=== PATIENT | female | born 1945 | race Caucasian/White ===

== ENCOUNTER 2016-08-08 17:54 | Emergency (ER) | payer OTHER, BC ==
[~2016-08-08] VITALS: Ht 152.4 cm; Wt 51.8 kg
[~2016-08-08 17:54] MED LIST: ATARAX,VISTARIL25 MG PO; ATIVAN0.5 MG PO; CEFTIN500 MG PO; CEPACOL SORE T1 EAC9 MM; CLARITIN,ALAVAR10 MG PO; CLARITIN10 M3 PO; COUMADIN,JANTOVE2 MG PO; COUMADIN1 MG PO; COUMADIN2 MG PO; DECADRON1 MG PO; DECADRON2 MG PO; DECADRON4 MG PO; DILAUDID2 MG PO; DULCOLAX10 MG PR; ESTRACE0.5 MG PO; EXTRA STRENGTH500 M1 PO; HYDROCODON-ACE1 EAC7 PO; HYDROMORPHO1 MG/1 ML IV; IBUPROFEN600 MG PO; LABETALOL HCL100 MG PO; LEVALBUTER1.25 MG/0. AEROSOL; LEVO-T50 MCG PO; LIPITOR20 MG PO; LOMOTIL TABLET1 EACH PO; LOPRESSOR25 MG PO; LORAZEPAM0.5 MG PO; LOVENOX60 MG/0.6 SC; LOVENOX80 MG/0.8 SC; METOPROLOL SUCC25 MG PO; METOPROLOL SUCC50 MG PO; METOPROLOL TART25 MG PO; MICRO-K10 ME2 PO; MILK OF MAGN PO; MOTRIN600 MG PO; MYCOSTATIN 100,60 ML PO; NEULASTA6 MG/0.6 M SC; ONDANSETRON HCL4 MG PO; PANTOPRAZOLE SO40 MG PO; POTASSIUM CHLO10 ME3 PO; POTASSIUM CHLO20 ME2 PO; PREDNISONE10 MG PO; PROMETRIUM200 M1 PO; PROTONIX40 MG PO; PROVENTIL,2.5 MG/3 M IH; RANITIDINE HCL150 MG PO; SYNTHROID75 MCG PO; TOPROL XL50 MG PO; TYLENOL EXTRA500 MG PO; ZANTAC150 MG PO; ZOFRAN4 MG PO; ZOFRAN4 MG/2 ML IV; ZYRTEC10 M2 PO
[2016-08-08 19:23] LABS: EOSINOPHIL (%) 0.5 % (0-5); HEMATOCRIT 33.6 % (36.0-46.0); IMMATURE GRANULOCYTE (%) 1.6 % (0.0-0.7); IMMATURE GRANULOCYTE COUNT 1.2 K/uL; LYMPHOCYTE COUNT 0.4 K/uL (1.0-2.8); MCH 33.6 PG (29.0-34.0); MCHC 35.4 G/DL (30.0-36.0); MCV 94.9 FL (83-99); MEAN PLAT.VOLUME 10.4 uM^3 (9.5-12.4); MONOCYTE (%) 6.8 % (3-12); MONOCYTE COUNT 0.5 K/uL (0-0.8); NEUTROPHIL (%) 85.7 % (45-76); NEUTROPHIL COUNT 6.4 K/uL (1.8-6.4); PLATELET COUNT 69 K/uL (156-360); RBC DIS.WIDTH-CV 14.6 % (11.8-14.6); RED BLOOD COUNT 3.54 M/uL (3.80-5.20); WHITE BLOOD COUNT 7.5 K/uL (4.1-10.2)
[2016-08-08 19:40] LABS: CHLORIDE 101 mEq/L (99-109); POTASSIUM 4.6 mEq/L (3.7-5.4); SODIUM 133 mEq/L (136-147)
[2016-08-08 19:43] LABS: GLUCOSE 115 mg/dL (70-99)
[2016-08-08 19:44] LABS: ANION GAP 11 MEQ/L (2-14)
[2016-08-08 19:45] LABS: TOTAL BILIRUBIN 0.5 mg/dL (0.0-1.0)
[2016-08-08 19:46] LABS: ALKALINE PHOSPHATASE 61 IU/L (3-129); GFR ESTIMATE (CALCULATED) > 59 mL/min/
[2016-08-08 19:47] LABS: UREA NITROGEN (BUN) 32 mg/dL (9-23)
[2016-08-08 19:52] LABS: PROTHROMBIN TIME 10.1 (9.2-11.2); PTT 21.2 (25-32)
[2016-08-08] MEDS ORDERED: POTASSIUM CHLO10 ME4 PO (20:14)
[2016-08-08] MEDS ORDERED: MAGNESIUM400 M1 PO (20:16)
[2016-08-08] MEDS ORDERED: DECADRON4 MG PO (20:18)
[2016-08-08] MEDS ORDERED: LOVENOX60 MG/0.6 SC (20:19)
[2016-08-08] MEDS ORDERED: SYNTHROID75 MCG PO (20:20)
[2016-08-08] MEDS ORDERED: TOPROL XL100 MG PO (20:20)
[2016-08-08] MEDS ORDERED: ZYRTEC10 M3 PO (20:22)
[2016-08-08] MEDS ORDERED: FLUCONAZOLE100 MG PO (20:23)
[2016-08-08] MEDS ORDERED: ACIDOPHILUS1 EAC4 PO (20:23)
[2016-08-08 21:50] VITALS: BP 148/91
== END 2016-08-08 21:55 | disposition home or self-care (01) ==
LOC: EME 17:54
PROVIDERS: Physician Assistant
DX: K92.1 Melena (principal); C79.31 Secondary malignant neoplasm of brain; Z85.3 Personal history of malignant neoplasm of breast; Z92.21 Personal history of antineoplastic chemotherapy; Z86.718 Personal history of other venous thrombosis and embolism; E11.9 Type 2 diabetes mellitus without complications; I10 Essential (primary) hypertension; K21.9 Gastro-esophageal reflux disease without esophagitis; E03.9 Hypothyroidism, unspecified; Z87.01 Personal history of pneumonia (recurrent); Z87.891 Personal history of nicotine dependence
CPT/HCPCS: 80053; 85025; 85610; 85730; 86850; 86900; 86901; 99281; 99285; J7030

== ENCOUNTER 2016-09-19 16:15 | Inpatient (IN) | payer OTHER, BC ==
[~2016-09-19] VITALS: Ht 152.4 cm; Wt 62.0 kg
[~2016-09-19 16:15] MED LIST changes: +ACIDOPHILUS1 EAC4 PO; +FLUCONAZOLE100 MG PO; +MAGNESIUM400 M1 PO; +POTASSIUM CHLO10 ME4 PO; +TOPROL XL100 MG PO; +ZYRTEC10 M3 PO
[2016-09-19 18:18] LABS: HEMATOCRIT 32.1 % (36.0-46.0); MCH 33.2 PG (29.0-34.0); MCHC 31.5 G/DL (30.0-36.0); MCV 105.6 FL (83-99); MEAN PLAT.VOLUME 9.5 uM^3 (9.5-12.4); PLATELET COUNT 221 K/uL (156-360); RBC DIS.WIDTH-CV 17.1 % (11.8-14.6); RBC DIS.WIDTH-SD 63.4 % (39-53); RED BLOOD COUNT 3.04 M/uL (3.80-5.20)
[2016-09-19 18:21] LABS: WHITE BLOOD COUNT 12.3 K/uL (4.1-10.2)
[2016-09-19 18:26] LABS: CHLORIDE 103 mEq/L (99-109)
[2016-09-19 18:27] LABS: SODIUM 138 mEq/L (136-147)
[2016-09-19 18:28] LABS: GLUCOSE 104 mg/dL (70-99)
[2016-09-19 18:30] LABS: ANION GAP 12 MEQ/L (2-14)
[2016-09-19 18:32] LABS: GFR ESTIMATE (CALCULATED) > 59 mL/min/
[2016-09-19 18:33] LABS: UREA NITROGEN (BUN) 16 mg/dL (9-23)
[2016-09-19 18:38] LABS: TROP-I INTERPRETATION NEGATIVE; TROPONIN-I < 0.01 ng/mL (0.0-0.30)
[2016-09-19 19:06] LABS: ADD MIUA? YES; BILIRUBIN NEGATIVE; BLOOD NEGATIVE; COLOR DK YELLOW ((YELLOW)); GLUCOSE (STRIP) NEGATIVE; KETONES TRACE; LEUKOCYTES MODERATE; NITRITE NEGATIVE; PROTEIN (STRIP) TRACE; SPECIFIC GRAVITY 1.023 (1.000-1.030); UROBILINOGEN 0.2 MG/DL (0.2-1.0)
[2016-09-19 19:24] LABS: CRYSTALS PRESENT; UCUL ADDED? YES
[2016-09-19 19:25] LABS: AMORPHOUS URATES CRYSTALS 3+
[2016-09-19] MEDS ORDERED: TOPROL XL25 MG PO (19:57)
[2016-09-20] VITALS (7 sets, daily range): BP systolic 97–149; BP diastolic 49–67
[2016-09-20 07:44] LABS: MCH 33.6 PG (29.0-34.0); MCHC 31.9 G/DL (30.0-36.0); MCV 105.5 FL (83-99); MEAN PLAT.VOLUME 9.9 uM^3 (9.5-12.4); PLATELET COUNT 179 K/uL (156-360); RBC DIS.WIDTH-CV 17.2 % (11.8-14.6); RBC DIS.WIDTH-SD 66.8 % (39-53); RED BLOOD COUNT 2.56 M/uL (3.80-5.20); WHITE BLOOD COUNT 9.3 K/uL (4.1-10.2)
[2016-09-20 07:50] LABS: EOSINOPHIL (%) 0.1 % (0-5); IMMATURE GRANULOCYTE (%) 0.3 % (0.0-0.7); LYMPHOCYTE COUNT 0.9 K/uL (1.0-2.8); MONOCYTE (%) 14.9 % (3-12); MONOCYTE COUNT 1.4 K/uL (0-0.8); NEUTROPHIL (%) 75.2 % (45-76)
[2016-09-20 08:04] LABS: ANION GAP 7 MEQ/L (2-14); CHLORIDE 108 MEQ/L (99-109); GFR ESTIMATE (CALCULATED) > 59 mL/min/; GLUCOSE 94 mg/dL (70-99); POTASSIUM 3.3 MEQ/L (3.7-5.4); SAMPLE HEMOLYSIS CHECK 0; SAMPLE ICTERIC CHECK 0; SAMPLE LIPEMIA CHECK 0; SODIUM 139 MEQ/L (136-147); UREA NITROGEN (BUN) 12 mg/dL (9-23)
[2016-09-21] VITALS (7 sets, daily range): BP systolic 84–130; BP diastolic 40–856
[2016-09-21 07:34] LABS: HEMATOCRIT 26.8 % (36.0-46.0); MCH 32.3 PG (29.0-34.0); MCV 104.3 FL (83-99); MEAN PLAT.VOLUME 9.9 uM^3 (9.5-12.4); PLATELET COUNT 185 K/uL (156-360); RBC DIS.WIDTH-CV 16.8 % (11.8-14.6); RBC DIS.WIDTH-SD 63.8 % (39-53); RED BLOOD COUNT 2.57 M/uL (3.80-5.20); WHITE BLOOD COUNT 8.2 K/uL (4.1-10.2)
[2016-09-21 07:55] LABS: EOSINOPHIL (%) 0.5 % (0-5); IMMATURE GRANULOCYTE (%) 0.4 % (0.0-0.7); MONOCYTE (%) 12.8 % (3-12); MONOCYTE COUNT 1.1 K/uL (0-0.8); NEUTROPHIL (%) 74.3 % (45-76); NEUTROPHIL COUNT 6.1 K/uL (1.8-6.4)
[2016-09-21 08:10] LABS: ALKALINE PHOSPHATASE 79 IU/L (3-129); ANION GAP 9 MEQ/L (2-14); CHLORIDE 105 MEQ/L (99-109); GFR ESTIMATE (CALCULATED) > 59 mL/min/; GLUCOSE 86 mg/dL (70-99); POTASSIUM 3.7 MEQ/L (3.7-5.4); SAMPLE HEMOLYSIS CHECK 0; SAMPLE ICTERIC CHECK 0; SAMPLE LIPEMIA CHECK 0; SODIUM 139 MEQ/L (136-147); TOTAL BILIRUBIN 0.8 MG/DL (0.0-1.0); UREA NITROGEN (BUN) 10 mg/dL (9-23)
[2016-09-22 01:13] VITALS: BP 106/47
[2016-09-22 05:22] VITALS: BP 110/56
[2016-09-22 07:50] LABS: HEMATOCRIT 25.5 % (36.0-46.0); MCH 32.8 PG (29.0-34.0); MCHC 31.8 G/DL (30.0-36.0); MCV 103.2 FL (83-99); PLATELET COUNT 178 K/uL (156-360); RBC DIS.WIDTH-CV 16.4 % (11.8-14.6); RBC DIS.WIDTH-SD 62.5 % (39-53); RED BLOOD COUNT 2.47 M/uL (3.80-5.20); WHITE BLOOD COUNT 5.9 K/uL (4.1-10.2)
[2016-09-22 07:54] VITALS: BP 84/64
[2016-09-22 08:05] LABS: EOSINOPHIL (%) 1.3 % (0-5); EOSINOPHIL COUNT 0.1 K/uL (0-0.3); LYMPHOCYTE COUNT 0.8 K/uL (1.0-2.8); MONOCYTE (%) 13.5 % (3-12); MONOCYTE COUNT 0.8 K/uL (0-0.8); NEUTROPHIL (%) 72.4 % (45-76); NEUTROPHIL COUNT 4.3 K/uL (1.8-6.4)
[2016-09-22 08:19] LABS: ANION GAP 7 MEQ/L (2-14); CHLORIDE 106 MEQ/L (99-109); GFR ESTIMATE (CALCULATED) > 59 mL/min/; GLUCOSE 91 mg/dL (70-99); POTASSIUM 3.9 MEQ/L (3.7-5.4); SAMPLE HEMOLYSIS CHECK 0; SAMPLE ICTERIC CHECK 0; SAMPLE LIPEMIA CHECK 0; SODIUM 138 MEQ/L (136-147); UREA NITROGEN (BUN) 8 mg/dL (9-23)
[2016-09-22 10:20] VITALS: BP 107/51
[2016-09-22 10:52] VITALS: BP 118/49
[2016-09-22] MEDS ORDERED: LEVAQUIN500 MG PO (11:21)
== END 2016-09-22 16:28 | disposition home or self-care (01) | DRG 872 ==
LOC: EME 16:15 → 2EAST 21:43 → EDOF 21:43 → 2EAST 09-20 00:36
PROVIDERS: Emergency Medicine; Family Medicine; Internal Medicine
DX: A41.9 Sepsis, unspecified organism (principal); J98.11 Atelectasis; E87.6 Hypokalemia; R91.8 Other nonspecific abnormal finding of lung field; I49.1 Atrial premature depolarization; R00.0 Tachycardia, unspecified; D63.8 Anemia in other chronic diseases classified elsewhere; D53.9 Nutritional anemia, unspecified; I10 Essential (primary) hypertension; Z85.3 Personal history of malignant neoplasm of breast; Z85.841 Personal history of malignant neoplasm of brain; E78.5 Hyperlipidemia, unspecified; Z86.718 Personal history of other venous thrombosis and embolism; Z86.711 Personal history of pulmonary embolism; Z96.659 Presence of unspecified artificial knee joint; Z87.891 Personal history of nicotine dependence
CPT/HCPCS: 71020; 71250; 80048; 80053; 80202; 81003; 82607; 82746; 83605; 84484; 85025; 85027; 87040; 87086; 93005; 93306; 99281; 99285; J0692; J2405; J3370; J3420; J7030; J7050

== ENCOUNTER 2016-11-07 18:25 | Emergency (ER) | payer OTHER, BC ==
[~2016-11-07] VITALS: Ht 153.7 cm; Wt 61.0 kg
[~2016-11-07 18:25] MED LIST changes: +LEVAQUIN500 MG PO; +TOPROL XL25 MG PO
[2016-11-07 20:04] LABS: ADD MIUA? YES; BILIRUBIN NEGATIVE; BLOOD SMALL; COLOR STRAW ((YELLOW)); GLUCOSE (STRIP) NEGATIVE; KETONES NEGATIVE; LEUKOCYTES NEGATIVE; NITRITE NEGATIVE; PROTEIN (STRIP) NEGATIVE; SPECIFIC GRAVITY 1.005 (1.000-1.030); UROBILINOGEN 0.2 MG/DL (0.2-1.0)
[2016-11-07 20:14] LABS: EOSINOPHIL (%) 0.2 % (0-5); HEMATOCRIT 38.3 % (36.0-46.0); IMMATURE GRANULOCYTE (%) 0.8 % (0.0-0.7); INSTRUMENT ABS NEUTROPHIL CT 3.6 K/uL; LYMPHOCYTE COUNT 0.9 K/uL (1.0-2.8); MCHC 32.1 G/DL (30.0-36.0); MEAN PLAT.VOLUME 9.7 uM^3 (9.5-12.4); MONOCYTE (%) 9.2 % (3-12); MONOCYTE COUNT 0.5 K/uL (0-0.8); NEUTROPHIL (%) 72.1 % (45-76); NEUTROPHIL COUNT 3.6 K/uL (1.8-6.4); PLATELET COUNT 134 K/uL (156-360); RBC DIS.WIDTH-CV 16.9 % (11.8-14.6); RBC DIS.WIDTH-SD 64.6 % (39-53); RED BLOOD COUNT 3.73 M/uL (3.80-5.20)
[2016-11-07 20:15] LABS: MCV 102.7 FL (83-99)
[2016-11-07 20:20] LABS: BACTERIA RARE /HPF; EPITHELIAL CELLS NONE SEEN /HPF; MUCUS NONE SEEN /LPF; RED BLOOD CELLS 0-5 /HPF (0-5); UCUL ADDED? NO; WHITE BLOOD CELLS 0-5 /HPF (0-5)
[2016-11-07 20:27] LABS: CHLORIDE 103 mEq/L (99-109); POTASSIUM 3.9 mEq/L (3.7-5.4); SODIUM 137 mEq/L (136-147)
[2016-11-07 20:28] LABS: GLUCOSE 98 mg/dL (70-99)
[2016-11-07 20:30] LABS: ANION GAP 10 MEQ/L (2-14)
[2016-11-07 20:32] LABS: GFR ESTIMATE (CALCULATED) > 59 mL/min/
[2016-11-07 20:33] LABS: UREA NITROGEN (BUN) 20 mg/dL (9-23)
[2016-11-07 20:52] LABS: INFLUENZA A VIRAL ANTIGEN NEGATIVE; INFLUENZA B VIRAL ANTIGEN NEGATIVE
[2016-11-07 22:25] VITALS: BP 143/77
== END 2016-11-07 22:26 | disposition home or self-care (01) ==
LOC: EME → EDBD 18:25 → EME 22:26
PROVIDERS: Emergency Medicine
DX: R53.1 Weakness (principal); C79.31 Secondary malignant neoplasm of brain; Z85.3 Personal history of malignant neoplasm of breast; E11.9 Type 2 diabetes mellitus without complications; I10 Essential (primary) hypertension; K21.9 Gastro-esophageal reflux disease without esophagitis; Z86.718 Personal history of other venous thrombosis and embolism; E03.9 Hypothyroidism, unspecified; Z87.891 Personal history of nicotine dependence
CPT/HCPCS: 80048; 81003; 85025; 87502; 99281; 99284; J7030

== ENCOUNTER 2016-12-02 22:22 | Inpatient (IN) | payer OTHER, BC ==
[~2016-12-02] VITALS: Ht 152.4 cm; Wt 54.4 kg
[2016-12-02 23:56] LABS: ADD MIUA? NO; BILIRUBIN NEGATIVE; BLOOD NEGATIVE; COLOR YELLOW ((YELLOW)); GLUCOSE (STRIP) NEGATIVE; KETONES NEGATIVE; LEUKOCYTES NEGATIVE; NITRITE NEGATIVE; PROTEIN (STRIP) NEGATIVE; SPECIFIC GRAVITY 1.031 (1.000-1.030); UCUL ADDED? NO; UROBILINOGEN 0.2 MG/DL (0.2-1.0)
[2016-12-03 00:20] LABS: EOSINOPHIL (%) 0 % (0-5); HEMATOCRIT 45.3 % (36.0-46.0); IMMATURE GRANULOCYTE (%) 1.4 % (0.0-0.7); IMMATURE GRANULOCYTE COUNT 0.2 K/uL; INSTRUMENT ABS NEUTROPHIL CT 8.8 K/uL; MCH 32.8 PG (29.0-34.0); MCV 96.6 FL (83-99); MEAN PLAT.VOLUME 9.1 uM^3 (9.5-12.4); MONOCYTE COUNT 1.2 K/uL (0-0.8); NEUTROPHIL (%) 78.1 % (45-76); NEUTROPHIL COUNT 8.8 K/uL (1.8-6.4); PLATELET COUNT 324 K/uL (156-360); RBC DIS.WIDTH-CV 14.5 % (11.8-14.6); RBC DIS.WIDTH-SD 51.5 % (39-53); RED BLOOD COUNT 4.69 M/uL (3.80-5.20); WHITE BLOOD COUNT 11.2 K/uL (4.1-10.2)
[2016-12-03 00:26] LABS: CHLORIDE 101 mEq/L (99-109); POTASSIUM 4.4 mEq/L (3.7-5.4); SODIUM 134 mEq/L (136-147)
[2016-12-03 00:28] LABS: GLUCOSE 86 mg/dL (70-99)
[2016-12-03 00:29] LABS: ANION GAP 12 MEQ/L (2-14)
[2016-12-03 00:30] LABS: TOTAL BILIRUBIN 0.4 mg/dL (0.0-1.0)
[2016-12-03 00:32] LABS: ALKALINE PHOSPHATASE 70 IU/L (3-129); GFR ESTIMATE (CALCULATED) > 59 mL/min/
[2016-12-03 00:33] LABS: DIRECT BILIRUBIN 0.1 mg/dL (0.0-0.3); UREA NITROGEN (BUN) 30 mg/dL (9-23)
[2016-12-03 00:35] LABS: CREATINE KINASE 12 IU/L (1-294); LIPASE 63 U/L (1.0-51.0); TOTAL CK 12 IU/L (1-294)
[2016-12-03 00:36] LABS: TROP-I INTERPRETATION NEGATIVE; TROPONIN-I < 0.01 ng/mL (0.0-0.30)
[2016-12-03 00:37] LABS: INTER. NORMALIZED RATIO 1.3; PROTHROMBIN TIME 13.2 (9.2-11.2); PTT 29.8 (25-32)
[2016-12-03 00:41] LABS: CK-MB 0.5 ng/mL (0.0-4.9)
[2016-12-03] MEDS ORDERED: DECADRON4 MG PO (02:34)
[2016-12-03] MEDS ORDERED: PROBIOTIC1 EAC1 PO (02:35)
[2016-12-03 04:46] VITALS: BP 135/60
[2016-12-03 06:06] LABS: EOSINOPHIL (%) 0.2 % (0-5); HEMATOCRIT 41.4 % (36.0-46.0); IMMATURE GRANULOCYTE (%) 1.7 % (0.0-0.7); IMMATURE GRANULOCYTE COUNT 0.2 K/uL; INSTRUMENT ABS NEUTROPHIL CT 7.2 K/uL; MCH 32.5 PG (29.0-34.0); MCHC 33.3 G/DL (30.0-36.0); MCV 97.4 FL (83-99); MEAN PLAT.VOLUME 8.8 uM^3 (9.5-12.4); MONOCYTE (%) 11.6 % (3-12); MONOCYTE COUNT 1.1 K/uL (0-0.8); NEUTROPHIL (%) 75.9 % (45-76); NEUTROPHIL COUNT 7.2 K/uL (1.8-6.4); PLATELET COUNT 238 K/uL (156-360); RBC DIS.WIDTH-CV 14.4 % (11.8-14.6); RBC DIS.WIDTH-SD 52.1 % (39-53); RED BLOOD COUNT 4.25 M/uL (3.80-5.20); WHITE BLOOD COUNT 9.5 K/uL (4.1-10.2)
[2016-12-03 06:31] LABS: ANION GAP 5 MEQ/L (2-14); CHLORIDE 100 MEQ/L (99-109); GFR ESTIMATE (CALCULATED) > 59 mL/min/; GLUCOSE 83 mg/dL (70-99); SAMPLE HEMOLYSIS CHECK 1; SAMPLE ICTERIC CHECK 0; SAMPLE LIPEMIA CHECK 0; SODIUM 132 MEQ/L (136-147); UREA NITROGEN (BUN) 20 mg/dL (9-23)
[2016-12-03 08:26] VITALS: BP 163/72
[2016-12-03 09:10] LABS: INTERNAL CONTROL VALID? YES
[2016-12-03] MEDS ORDERED: XARELTO20 MG PO (14:20)
[2016-12-03] MEDS ORDERED: VISINE TEARS DR30 ML BOTH EYES (14:20)
[2016-12-03 17:06] VITALS: BP 160/71
[2016-12-03 23:01] VITALS: BP 142/75
[2016-12-04 06:32] LABS: HEMATOCRIT 42.5 % (36.0-46.0); MCH 32.7 PG (29.0-34.0); MCHC 34.4 G/DL (30.0-36.0); MCV 95.3 FL (83-99); MEAN PLAT.VOLUME 8.6 uM^3 (9.5-12.4); PLATELET COUNT 243 K/uL (156-360); RBC DIS.WIDTH-CV 14.5 % (11.8-14.6); RBC DIS.WIDTH-SD 51.3 % (39-53); RED BLOOD COUNT 4.46 M/uL (3.80-5.20); WHITE BLOOD COUNT 11.4 K/uL (4.1-10.2)
[2016-12-04 06:54] VITALS: BP 132/64
[2016-12-04 06:55] LABS: ANION GAP 9 MEQ/L (2-14); CHLORIDE 101 MEQ/L (99-109); GFR ESTIMATE (CALCULATED) > 59 mL/min/; GLUCOSE 78 mg/dL (70-99); POTASSIUM 4.2 MEQ/L (3.7-5.4); SAMPLE HEMOLYSIS CHECK 0; SAMPLE ICTERIC CHECK 0; SAMPLE LIPEMIA CHECK 0; SODIUM 135 MEQ/L (136-147); UREA NITROGEN (BUN) 19 mg/dL (9-23)
[2016-12-04 15:00] VITALS: BP 130/60
[2016-12-04 23:22] VITALS: BP 121/63
[2016-12-05 07:05] VITALS: BP 130/65
[2016-12-05 15:10] VITALS: BP 127/66
[2016-12-05 23:23] VITALS: BP 136/67
[2016-12-06 08:26] VITALS: BP 133/72
[2016-12-06 08:55] LABS: HEMATOCRIT 43.4 % (36.0-46.0); MCH 31.8 PG (29.0-34.0); MCHC 33.6 G/DL (30.0-36.0); MCV 94.6 FL (83-99); MEAN PLAT.VOLUME 8.7 uM^3 (9.5-12.4); PLATELET COUNT 234 K/uL (156-360); RBC DIS.WIDTH-CV 14.5 % (11.8-14.6); RBC DIS.WIDTH-SD 50.3 % (39-53); RED BLOOD COUNT 4.59 M/uL (3.80-5.20); WHITE BLOOD COUNT 12.2 K/uL (4.1-10.2)
[2016-12-06 09:21] LABS: ANION GAP 11 MEQ/L (2-14); CHLORIDE 98 MEQ/L (99-109); GFR ESTIMATE (CALCULATED) > 59 mL/min/; GLUCOSE 130 mg/dL (70-99); POTASSIUM 4.4 MEQ/L (3.7-5.4); SAMPLE HEMOLYSIS CHECK 0; SAMPLE ICTERIC CHECK 0; SAMPLE LIPEMIA CHECK 0; SODIUM 134 MEQ/L (136-147); UREA NITROGEN (BUN) 24 mg/dL (9-23)
[2016-12-06 17:02] VITALS: BP 141/75
[2016-12-07 00:11] VITALS: BP 141/63
[2016-12-07 06:45] VITALS: BP 142/69
[2016-12-07 06:58] LABS: HEMATOCRIT 44.1 % (36.0-46.0); MCH 33.4 PG (29.0-34.0); MCHC 35.1 G/DL (30.0-36.0); MEAN PLAT.VOLUME 9.1 uM^3 (9.5-12.4); MONOCYTE (%) 5.3 % (3-12); NEUTROPHIL (%) 87.9 % (45-76); PLATELET COUNT 244 K/uL (156-360); RBC DIS.WIDTH-CV 14.5 % (11.8-14.6); RBC DIS.WIDTH-SD 50.4 % (39-53); RED BLOOD COUNT 4.64 M/uL (3.80-5.20); WHITE BLOOD COUNT 14.4 K/uL (4.1-10.2)
[2016-12-07 06:59] LABS: EOSINOPHIL (%) 0 % (0-5); IMMATURE GRANULOCYTE (%) 1.1 % (0.0-0.7); IMMATURE GRANULOCYTE COUNT 0.2 K/uL; INSTRUMENT ABS NEUTROPHIL CT 12.7 K/uL; LYMPHOCYTE COUNT 0.8 K/uL (1.0-2.8); MONOCYTE COUNT 0.8 K/uL (0-0.8); NEUTROPHIL COUNT 12.7 K/uL (1.8-6.4)
[2016-12-07 07:26] LABS: ANION GAP 11 MEQ/L (2-14); CHLORIDE 98 MEQ/L (99-109); GFR ESTIMATE (CALCULATED) > 59 mL/min/; GLUCOSE 125 mg/dL (70-99); POTASSIUM 4.6 MEQ/L (3.7-5.4); SAMPLE HEMOLYSIS CHECK 0; SAMPLE ICTERIC CHECK 0; SAMPLE LIPEMIA CHECK 0; SODIUM 134 MEQ/L (136-147); UREA NITROGEN (BUN) 23 mg/dL (9-23)
[2016-12-07 15:10] VITALS: BP 133/71
[2016-12-07 22:45] VITALS: BP 134/71
[2016-12-08 06:53] VITALS: BP 147/67
[2016-12-08 15:00] VITALS: BP 136/84
[2016-12-08] MEDS ORDERED: DEXAMETHASONE4 MG PO (15:09)
[2016-12-08 23:56] VITALS: BP 130/65
[2016-12-09 07:01] VITALS: BP 141/86
[2016-12-09 15:26] VITALS: BP 140/77
[2016-12-09 23:08] VITALS: BP 116/71
[2016-12-10 07:24] VITALS: BP 129/78
[2016-12-10] MEDS ORDERED: HYOSCYAMINE0.125 M2 PO (11:21)
[2016-12-10] MEDS ORDERED: DILAUDID 11 MG/1 M1 PO (11:21)
[2016-12-10] MEDS ORDERED: ATIVAN0.5 MG PO (11:21)
[2016-12-10] MEDS ORDERED: DILAUDID PO (12:15)
[2016-12-10] MEDS ORDERED: MYCOSTATIN 100,60 ML PO (12:56)
[2016-12-10] MEDS ORDERED: DILAUDID2 MG PO (12:56)
== END 2016-12-10 14:24 | disposition hospice, home (50) | DRG 54 ==
LOC: EME → EDBD 22:22 → 5EAST 12-03 03:25 → EDOF 12-03 03:25 → 5EAST 12-03 04:30
PROVIDERS: Emergency Medicine; Hospitalist; Internal Medicine; Nurse Practitioner Family
DX: C79.31 Secondary malignant neoplasm of brain (principal); J18.9 Pneumonia, unspecified organism; E86.0 Dehydration; I10 Essential (primary) hypertension; Z85.3 Personal history of malignant neoplasm of breast; Z86.711 Personal history of pulmonary embolism; Z79.01 Long term (current) use of anticoagulants; Z86.718 Personal history of other venous thrombosis and embolism; E78.5 Hyperlipidemia, unspecified; E87.1 Hypo-osmolality and hyponatremia; N17.9 Acute kidney failure, unspecified; Z87.891 Personal history of nicotine dependence; B37.0 Candidal stomatitis; Z96.652 Presence of left artificial knee joint; Z90.5 Acquired absence of kidney; D68.51 Activated protein C resistance; E03.9 Hypothyroidism, unspecified; K21.9 Gastro-esophageal reflux disease without esophagitis
CPT/HCPCS: 36415; 70450; 70553; 71010; 71020; 72158; 72192; 77290; 77307; 77331; 77334; 77412; 77417; 80048; 80048 91; 80076; 81003; 82550; 82553; 82607; 83605; 83690; 83735; 84484; 85025; 85025 91; 85027; 85610; 85730; 87040; 87070; 87205; 87449; 93005; 94760; 97530 GP; 99202; 99281; 99285; J1956; J2405; J3420; J7030; J8540